=== PATIENT | female | born 1985 | race Caucasian/White ===

== ENCOUNTER 2016-07-15 09:28 | Inpatient (IN) | payer BC ==
--- NOTE | 2016-07-15 09:59 | EDPHY ---
H & P Time Seen by Provider: 07/15/16 09:37 HPI/ROS: Chief complaint. Abdominal pain HPI. 30-year-old female presents emergency department abdominal pain for 1. Described as upper abdomen and painful. She also describes as sharp and constant with radiation to back. Associated nausea vomiting. Denies diarrhea or fever. No chest discomfort does complain of shortness of breath and productive cough. Recent heavy alcohol ROS Constitutional. Weakness Eyes. no problems with vision ENT. no sore throat, no nasal drainage Cardiovascular. no chest pain Respiratory. Shortness of breath with cough Abdominal. Upper abdominal pain with nausea and vomiting . no problems urinating MS. no calf pain/swelling, no neck/back pain, no joint pain Skin. no rash Lymph. no swollen glands Neuro. no headache, no dizziness, no difficulty walking or with speech Past Medical/Surgical History: Past medical history is otitis, encephalopathy, cerebellar degeneration shown. She has also alcoholism, left breast with reconstruction. Celiac disease, previous C difficile Social History: Single, daily smoker, recent alcohol Smoking Status: Current every day smoker Physical Exam: General Appearance: Alert well-developed female moderate distress vital signs show heart rate 143 with blood pressure 133/107 and respiratory rate 24 Eyes: Pupils equal and round no pallor or injection. ENT, mucous membranes are dry Respiratory: There is tachypnea. Lungs are clear to auscultation Cardiovascular: Regular rate and rhythm with tachycardia Gastrointestinal: Abdomen is soft with tenderness in the epigastrium. No masses. Bowel sounds normal Neurological: Awake and alert, sensory and motor exams grossly normal. Skin: Warm and dry, no rashes. Musculoskeletal: Neck is supple nontender. Extremities symmetrical, full range of motion. Psychiatric: Patient is oriented X 3, there is no agitation. Constitutional: Initial Vital Signs Heart Rate 143 H 07/15/16 09:29 Respiratory Rate 24 H 07/15/16 09:29 Blood Pressure 133/107 H 07/15/16 09:29 O2 Sat (%) 94 07/15/16 09:29 O2 Delivery Mode Room Air Allergies/Adverse Reactions: celecoxib [From Celebrex] Allergy (Verified 08/04/15 12:18) tizanidine HCl [From Zanaflex] Allergy (Verified 12/20/15 01:51) Other-Enter Comments Home Medications: Medication Instructions Recorded Gabapentin [Neurontin 300 MG (*)] 1,200 mg PO TID 07/09/15 Ibuprofen [Motrin (*)] 600 mg PO DAILY PRN 07/09/15 Norgestimate-Ethinyl Estradiol 1 tab PO DAILY 07/09/15 [Norg-Ee 0.18-0.215-0.25/0.035] DULoxetine [Cymbalta 30 MG (*)] 30 mg PO BID #60 cap 08/02/15 oxyCODONE/APAP 5/325 [Percocet 1 tab PO DAILY PRN 12/19/15 5/325 (*)] Thiamine HCl [Vitamin B-1] 100 mg PO DAILY #30 tab 12/24/15 Medical Decision Making Procedures: IV normal saline, monitor. Initial target of 2 L. Dilaudid for pain. Zofran for nausea ED Course/Re-evaluation: The patient received 2 L of fluid. She has remained EKG did with Dilaudid and Zofran. Tachycardia it is decreasing but the patient remains tachycardia Patient and I discussed laboratory evaluation, treatment plan, recommendation for admission. She expresses understanding and agreement Differential Diagnosis: The patient clearly has pancreatitis. I think that this is also alcohol withdrawal. I think however the patient probably has alcoholic ketoacidosis. She denies drinking ethanol, isopropyl alcohol, ethylene glycol. Patient is severely acidotic with an elevated anion gap. Differential would include nontraditional alcohol switch the patient denies as well as lactate. Critical Care Time: Critical care time exclusive of procedures is 40 minutes - Data Points Laboratory Results: Laboratory Results 07/15/16 10:05 07/15/16 11:18 07/15/16 07/15/16 07/15/16 11:18 10:59 10:05 WBC 9.23 10^3/uL (3.80-9.50) RBC 4.13 L 10^6/uL (4.18-5.33) Hgb 15.6 g/dL (12.6-16.3) Hct 45.1 % (38.0-47.0) MCV 109.2 H fL (81.5-99.8) MCH 37.8 H pg (27.9-34.1) MCHC 34.6 g/dL (32.4-36.7) RDW 14.3 % (11.5-15.2) Plt Count 133 L 10^3/uL (150-400) MPV 10.1 fL (8.7-11.7) Neut % (Auto) 88.5 H % (39.3-74.2) Lymph % (Auto) 5.2 L % (15.0-45.0) [place] % (Auto) 5.3 % (4.5-13.0) Eos % (Auto) 0.0 L % (0.6-7.6) Baso % (Auto) 0.5 % (0.3-1.7) Nucleat RBC Rel Count 0.2 % (0.0-0.2) Absolute Neuts (auto) 8.16 H 10^3/uL (1.70-6.50) Absolute Lymphs (auto) 0.48 L 10^3/uL (1.00-3.00) Absolute Monos (auto) 0.49 10^3/uL (0.30-0.80) Absolute Eos (auto) 0.00 L 10^3/uL (0.03-0.40) Absolute Basos (auto) 0.05 10^3/uL (0.02-0.10) Absolute Nucleated RBC 0.02 H 10^3/uL (0-0.01) Immature Gran % 0.5 % (0.0-1.1) Immature Gran # 0.05 10^3/uL (0.00-0.10) PT INR APTT VBG Lactic Acid 3.3 H mmol/L (0.7-2.1) Sodium 134 mEq/L REJ (134-144) Potassium 4.3 mEq/L REJ (3.5-5.2) Chloride 103 mEq/L REJ (97-110) Carbon Dioxide 6 L* mEq/l REJ (22-31) Anion Gap 25 mEq/L REJ (8-16) BUN 3 L mg/dL REJ (7-23) Creatinine 0.7 mg/dL REJ (0.6-1.0) Estimated GFR > 60 REJ Glucose 63 L mg/dL REJ (70-100) Calcium 7.2 L mg/dL REJ (8.5-10.4) Phosphorus Pending Magnesium Pending Total Bilirubin 3.0 H mg/dL REJ (0.1-1.4) Conjugated Bilirubin 2.2 H mg/dL REJ (0.0-0.5) Unconjugated Bilirubin 0.8 mg/dL REJ (0.0-1.1) AST 88 H IU/L REJ (14-46) ALT 44 IU/L REJ (9-52) Alkaline Phosphatase 71 IU/L REJ (38-126) Total Protein 6.6 g/dL REJ (6.3-8.2) Albumin 3.9 g/dL REJ (3.5-5.0) Lipase 7505.0 H IU/L REJ (23-300) Beta-Hydroxybutyrate Pending Beta HCG, Qual NEGATIVE 07/15/16 09:50 WBC RBC Hgb Hct MCV MCH MCHC RDW Plt Count MPV Neut % (Auto) Lymph % (Auto) [place] % (Auto) Eos % (Auto) Baso % (Auto) Nucleat RBC Rel Count Absolute Neuts (auto) Absolute Lymphs (auto) Absolute Monos (auto) Absolute Eos (auto) Absolute Basos (auto) Absolute Nucleated RBC Immature Gran % Immature Gran # PT 12.7 SEC (12.0-15.0) INR 0.96 (0.83-1.16) APTT 29.2 SEC (23.0-38.0) VBG Lactic Acid Sodium Potassium Chloride Carbon Dioxide Anion Gap BUN Creatinine Estimated GFR Glucose Calcium Phosphorus Magnesium Total Bilirubin Conjugated Bilirubin Unconjugated Bilirubin AST ALT Alkaline Phosphatase Total Protein Albumin Lipase Beta-Hydroxybutyrate Beta HCG, Qual Medications Given: Discontinued Medications Hydromorphone HCl (Dilaudid) 1 mg IVP EDNOW ONE Stop: 07/15/16 10:11 Last Admin: 07/15/16 10:28 Dose: 1 mg Hydromorphone HCl (Dilaudid) 1 mg IVP EDNOW ONE Stop: 07/15/16 12:05 Last Admin: 07/15/16 12:08 Dose: 1 mg Sodium Chloride (Ns) 1,000 mls @ 0 mls/hr IV ONCE ONE PRN Reason: Wide Open Stop: 07/15/16 10:11 Last Admin: 07/15/16 10:28 Dose: 1,000 mls Sodium Chloride (Ns) 1,000 mls @ 0 mls/hr IV ONCE ONE PRN Reason: Wide Open Stop: 07/15/16 10:11 Last Admin: 07/15/16 10:20 Dose: 1,000 mls Ondansetron HCl (Zofran) 4 mg IVP EDNOW ONE Stop: 07/15/16 10:11 Last Admin: 07/15/16 10:28 Dose: 4 mg Ondansetron HCl (Zofran) 4 mg IVP EDNOW ONE Stop: 07/15/16 12:05 Last Admin: 07/15/16 12:08 Dose: 4 mg Departure - Departure Disposition: [facility] Acute Clinical Impression: pancreatitis, alcoholic ketoacidosis Condition: Fair
[2016-07-15] MEDS ORDERED: NS 1,000 ML IV ONE ×3 (10:10→13:12)
[2016-07-15] MEDS ORDERED: HYDROmorphONE/DILAUDID 1 MG/ML SYR IVP ONE ×2 (10:10→12:04)
[2016-07-15] MEDS ORDERED: ONDANSETRON 4 MG/2 ML VIAL IVP ONE ×2 (10:10→12:04)
[2016-07-15 10:21] LABS: % IMMATURE GRANULYOCYTES 0.5 % (0.0-1.1); ABSOLUTE IMMATURE GRANULOCYTES 0.05 10^3/uL (0.00-0.10); ABSOLUTE NRBC COUNT 0.02 10^3/uL (0-0.01); ADD DIFF? NO; ADD MORPH? NO; ADD SCAN? NO; ATYPICAL LYMPHOCYTE FLAG 0 (0-99); FRAGMENT RBC FLAG 0 (0-99); HEMATOCRIT 45.1 % (38.0-47.0); HEMOGLOBIN 15.6 g/dL (12.6-16.3); LEFT SHIFT FLG 0 (0-99); LIPEMIA HEMOLYSIS FLAG 90 (0-99); MEAN CELL HEMOGLOBIN 37.8 pg (27.9-34.1); MEAN CELL HEMOGLOBIN CONCENTR. 34.6 g/dL (32.4-36.7); MEAN CELL VOLUME 109.2 fL (81.5-99.8); MEAN PLATELET VOLUME 10.1 fL (8.7-11.7); NRBC-AUTO% 0.2 % (0.0-0.2); PLATELET CLUMPS FLAG 20 (0-99); PLATELET COUNT 133 10^3/uL (150-400); RED BLOOD CELL COUNT 4.13 10^6/uL (4.18-5.33); RED CELL DISTRIBUTION WIDTH 14.3 % (11.5-15.2)
[2016-07-15 10:31] LABS: APTT 29.2 SEC (23.0-38.0); INR 0.96 (0.83-1.16); PROTIME(PATIENT) 12.7 SEC (12.0-15.0)
[2016-07-15 11:38] LABS: ALANINE AMINOTRANSFERASE 44 IU/L (9-52); ALBUMIN 3.9 g/dL (3.5-5.0); ALKALINE PHOSPHATASE 71 IU/L (38-126); ANION GAP 25 mEq/L (8-16); ASPARTATE AMINOTRANSFERASE 88 IU/L (14-46); BILIRUBIN-CONJUGATED 2.2 mg/dL (0.0-0.5); BILIRUBIN-UNCONJUGATED 0.8 mg/dL (0.0-1.1); CALCIUM 7.2 mg/dL (8.5-10.4); CHLORIDE 103 mEq/L (97-110); CREATININE 0.7 mg/dL (0.6-1.0); GLOMERULAR FILTRATION RATE > 60; GLUCOSE 63 mg/dL (70-100); POTASSIUM 4.3 mEq/L (3.5-5.2); SODIUM 134 mEq/L (134-144); TOTAL PROTEIN 6.6 g/dL (6.3-8.2)
[2016-07-15 11:54] LABS: CARBON DIOXIDE 6 mEq/l (22-31)
[2016-07-15] MEDS ORDERED: ONDANSETRON 4 MG/2 ML VIAL ONE ×2 (12:02→14:27)
[2016-07-15] MEDS ORDERED: HYDROmorphONE/DILAUDID 1 MG/ML SYR ONE ×2 (12:02→14:28)
[2016-07-15] MEDS ORDERED: THIAMINE HCL 500 MG in NS 100 ML IM ONE (12:10)
[2016-07-15] MEDS ORDERED: D5W 1/2 NS 1,000 ML IV SCH (12:15)
[2016-07-15] MEDS ORDERED: D5W NS 1,000 ML IV SCH ×2 (12:30→13:23)
[2016-07-15 12:34] LABS: MAGNESIUM 1.2 mg/dL (1.6-2.3)
[2016-07-15] MEDS ORDERED: MAGNESIUM SULF 2 GM/WATER 50 ML IV ONE ×2 (12:43→18:00)
[2016-07-15] MEDS ORDERED: ALTEPLASE 2 MG VIAL IVP PRN (13:11)
[2016-07-15] MEDS ORDERED: D50W 25 GM/50 ML SYR IVP ONE (13:12)
[2016-07-15] MEDS ORDERED: ONDANSETRON DISINTEGRATING 4 MG TAB PO PRN (13:13)
[2016-07-15] MEDS ORDERED: ACETAMINOPHEN 325 MG TAB PO PRN (13:13)
[2016-07-15] MEDS ORDERED: NS 1,000 ML IV SCH (13:15)
[2016-07-15] MEDS ORDERED: THIAMINE HCL 500 MG in NS 100 ML IV ONE (13:16)
[2016-07-15] MEDS ORDERED: chlordiazePOXIDE 25 MG CAP PO PRN (13:16)
[2016-07-15 13:35] LABS: BASE EXCESS -25.5 mEq/L (-2.5-2.5); BICARBONATE 3 mEq/L (22-26); MEASURED OXYGEN SATURATION 96 % (92-95); PO2 117 mmHg (65-75)
[2016-07-15 13:41] LABS: PCO2 10 mmHg (34-38)
[2016-07-15 13:42] LABS: O2 CONCENTRATIION ROOM AIR % (0-100); P/F RATIO 0 RATIO; TCO2 4 mEq/L (23-27)
--- NOTE | 2016-07-15 14:20 | GHP ---
[f rep st] HISTORY AND PHYSICAL DATE OF ADMISSION: 07/15/2016 CHIEF COMPLAINT: Abdominal pain. HISTORY OF PRESENT ILLNESS: This is a 30-year-old female with a history of alcoholism and a previous episode of severe pancreatitis last July. She presents with a 1-week history of abdominal pain a nd decreased p.o. intake, and then 2 days of severe abdominal pain radiating to the back that was sha rp, as well as nausea, vomiting. History is a little bit inconsistent at times. She states she only drinks about 2-3 drinks per day, and does admit to probably drinking more during the holidays. She is not having any fevers or chills. No shortness of breath. REVIEW OF SYSTEMS: A 10-point review of systems was obtained and other than as noted above was negat sarina. PAST MEDICAL HISTORY: 1. 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 2. History of peripheral neuropathy, for which she sees Dr. Riley. 3. Recent diagnosis of rheumatoid arthritis, status post cortisone injection in both knees. She sta liza she is getting physical therapy to help with that as well. 4. History of celiac sprue. SOCIAL HISTORY: Alcohol as above. Does smoke a little bit. FAMILY HISTORY: Mother had erythema nodosum. MEDICATIONS: Reviewed. PHYSICAL EXAMINATION: VITAL SIGNS: Afebrile. Blood pressure is 136/101, heart rate 130s to 140s, r espiratory rate 23, oxygen saturation is 100% on room air. GENERAL: The patient is ill appearing, t hin, with a little bit of tachypnea. HEENT: Nonicteric sclerae. Very dry mucous membranes. NECK: Supple. No thyromegaly. LUNGS: Good effort. Clear to auscultation bilaterally. CARDIOVASCULAR: Tachycardiac, no murmurs, rubs, or gallops. ABDOMEN: Decreased bowel sounds, soft, definitely on t he firmer side, diffuse tenderness. No rebound or guarding. EXTREMITIES: No clubbing, cyanosis, or edema. Mild tremor. NEUROLOGIC: Alert and oriented x3. Moving all 4 extremities equally. PSYCH: Normal mood and affect. LABS: White count 9, hemoglobin 15, MCV is 109, platelets are 133. Sodium 134, potassium 4.3, CO2 o f 6, BUN of 3, and creatinine 0.7. Glucose low at 63, total bilirubin 3.0, conjugated 2.2, AST 88. Magnesium is 1.2. Lactic acid elevated at 3.3. ASSESSMENT: A 30-year-old female presenting with severe acute pancreatitis as well as most likely al coholic ketoacidosis. PLAN: 1. Acute pancreatitis. This is presumed to be alcoholic, although would need to rule out gallstone pancreatitis. Will set up an ultrasound currently. Eventually, we do need to get CT scan to look at the pancreas as this is quite severe, however, I think she is a little bit unstable at this point fo r that. We are aggressively hydrating her currently. I am going to get a PICC line placement stat t o facilitate this. Most likely, this will be a prolonged hospital course. 2. Severe anion gap metabolic acidosis. This is most likely due to alcoholic ketoacidosis. Her lac tic acid is really not that elevated to cause such degree of acidosis. Her blood sugar is low at 62. Since her blood sugar is a little bit low, I am going to give her an amp of D50 and then will run s ome D5 normal saline as IV fluids for some time to both hydrate and give a little bit of sugar. We a nticipate a lot of electrolyte abnormalities, and will replete them as we begin to hydrate her. I wi ll also get a serum osmolar to calculate osmolar gap. 3. Alcoholism. Will place on CIWA protocol. 4. History of peripheral neuropathy. This appears to be stable. 5. Recent diagnosis of rheumatoid arthritis. 6. Celiac sprue. Once she is on diet, will make this gluten free. 1 hour of critical care time has been spent with this patient. /[id number]/MODL
[2016-07-15 15:06] LABS: COLOR YELLOW; LEUKOCYTE ESTERASE,URINE NEGATIVE (NEGATIVE); NITRITE,URINE NEGATIVE (NEGATIVE)
[2016-07-15 15:18] LABS: BACTERIA 1+ /hpf (NONE SEEN); MUCUS TRACE /lpf (NONE-1+)
[2016-07-15] MEDS: HYDROmorphONE/DILAUDID 1 MG/ML SYR IVP PRN ×2 (15:49→23:23)
[2016-07-15 16:00] LABS: ANION GAP 18 mEq/L (8-16); CALCIUM 6.4 mg/dL (8.5-10.4); CHLORIDE 106 mEq/L (97-110); CREATININE 0.6 mg/dL (0.6-1.0); GLOMERULAR FILTRATION RATE > 60; GLUCOSE 312 mg/dL (70-100); POTASSIUM 3.9 mEq/L (3.5-5.2); SODIUM 131 mEq/L (134-144)
[2016-07-15 16:04] LABS: CARBON DIOXIDE 7 mEq/l (22-31)
[2016-07-15] MEDS ORDERED: NA BICARBONATE 50 MEQ/50 ML VIAL ONE (16:15)
[2016-07-15] MEDS ORDERED: NICOTINE 7 MG/24 HR PATCH TD ONE (16:21)
[2016-07-15] MEDS: ONDANSETRON 4 MG/2 ML VIAL IVP PRN ×2 (16:25→23:16)
[2016-07-15] MEDS ORDERED: NA BICARBONATE 50 MEQ/50 ML VIAL IV ONE (17:30)
[2016-07-15] MEDS ORDERED: SODIUM BICARBONATE 150 MEQ in D5W 1,000 ML IV SCH (17:30)
[2016-07-15] MEDS: NICOTINE 7 MG/24 HR PATCH TD SCH (18:05)
[2016-07-15 18:46] LABS: ANION GAP 15 mEq/L (8-16); CALCIUM 6.1 mg/dL (8.5-10.4); CARBON DIOXIDE 11 mEq/l (22-31); CHLORIDE 107 mEq/L (97-110); CREATININE 0.5 mg/dL (0.6-1.0); GLOMERULAR FILTRATION RATE > 60; GLUCOSE 323 mg/dL (70-100); POTASSIUM 2.9 mEq/L (3.5-5.2); SODIUM 133 mEq/L (134-144)
--- NOTE | 2016-07-15 19:22 | IR ---
Imaging-Guided Peripherally Inserted Central Catheter History: Sepsis and pancreatitis. Prophylactic Antibiotic: Cefazolin was not ordered and administered for antimicrobial prophylaxis be cause it was not medically necessary for this procedure. VTE Prophylaxis: There is not an order for VTE prophylaxis to be given within 24 hours after procedu re end time because it was not medically necessary for this procedure. Crosscutting Measure: Patient's current list of medications including all known prescriptions, over- the-counters, herbals, and vitamin/mineral/dietary supplements are reviewed. Medications' name, dosa ge, frequency, and route of administration are confirmed. Technique: Following informed consent, the right arm was prepped and draped in sterile fashion. 1% Xy locaine was used for local anesthetic. All elements of maximal sterile barrier technique including cap, mask, sterile gown, sterile gloves, large sterile sheet, hand hygiene, and 2% chlorhexidine for cutaneous antisepsis, followed. Ultrasound evaluation of potential access site was performed. After successfully identifying a patent vessel, ultrasound guidance was used to puncture the vein. A permanent recording was created for the patient's record. Ultrasound transducer was placed in sterile sleeve and used for real-time imaging guidance over steri le gel to enter the basilic vein. 0.018 measuring wire was passed centrally under fluoroscopic contro l. A skin rosalie with scalpel blade was followed by removing the access needle. A 5 Spanish peel-away sh eath was followed by a 5 Spanish double-lumen central catheter, trimmed to 34 cm length. The tip of t he catheter was positioned centrally and the guidewire removed. A single fluoroscopic spot image was obtained in inspiration. The hub of the catheter was fixed to the skin using a sterile StatLock adhes sarina device, and a sterile dressing was applied. The catheter was irrigated. Findings: The tip of the central catheter terminates at the junction of the superior vena cava and th e right atrium. Fluoroscopy: 0.3 minutes, one images Impression: 5 Spanish double lumen peripherally inserted central catheter is ready to use.
[2016-07-15 19:25] LABS: ETHANOL SERUM < 10 mg/dL (0-10)
[2016-07-15] MEDS: LORazepam 2 MG/ML INJ IVP PRN (20:06)
[2016-07-15] MEDS: FAMOTIDINE 20 MG/NACL 50 ML IV SCH (20:07)
[2016-07-16] MEDS: LORazepam 2 MG/ML INJ IVP PRN ×4 (00:14→22:45)
[2016-07-16 00:28] LABS: ANION GAP 10 mEq/L (8-16); CALCIUM 6.3 mg/dL (8.5-10.4); CARBON DIOXIDE 23 mEq/l (22-31); CHLORIDE 100 mEq/L (97-110); CREATININE 0.5 mg/dL (0.6-1.0); GLOMERULAR FILTRATION RATE > 60; GLUCOSE 231 mg/dL (70-100); SODIUM 133 mEq/L (134-144)
[2016-07-16 00:40] LABS: POTASSIUM 2.5 mEq/L (3.5-5.2)
[2016-07-16] MEDS ORDERED: POTASSIUM Cl (KCl) 20 MEQ/50 ML BAG IV ONE (00:45)
[2016-07-16] MEDS: POTASSIUM Cl (KCl) 50 ML IV SCH ×5 (00:45→06:27)
[2016-07-16] MEDS: D5W NS W/ 20 KCl/L 1,000 ML IV SCH ×2 (00:50→05:00)
[2016-07-16] MEDS ORDERED: PROTOCOL MAGNESIUM 1 DOSE IV PRN ×2 (01:21→15:26)
[2016-07-16] MEDS ORDERED: PROTOCOL CALCIUM 1 DOSE IV PRN ×2 (01:21→15:26)
[2016-07-16] MEDS ORDERED: PROTOCOL POTASSIUM 1 DOSE MISC PRN ×2 (01:21→15:26)
[2016-07-16] MEDS: HYDROmorphONE/DILAUDID 1 MG/ML SYR IVP PRN ×6 (03:54→22:44)
[2016-07-16 04:14] LABS: IONIZED CALCIUM 1.02 MMOL/L (1.12-1.30)
[2016-07-16 04:27] LABS: INR 1.04 (0.83-1.16); PROTIME(PATIENT) 13.5 SEC (12.0-15.0)
[2016-07-16 04:28] LABS: ALANINE AMINOTRANSFERASE 34 IU/L (9-52); ALBUMIN 2.3 g/dL (3.5-5.0); ALKALINE PHOSPHATASE 40 IU/L (38-126); ANION GAP 6 mEq/L (8-16); ASPARTATE AMINOTRANSFERASE 39 IU/L (14-46); BILIRUBIN,TOTAL 2.4 mg/dL (0.1-1.4); CALCIUM 6.5 mg/dL (8.5-10.4); CARBON DIOXIDE 25 mEq/l (22-31); CHLORIDE 103 mEq/L (97-110); CREATININE 0.5 mg/dL (0.6-1.0); GLOMERULAR FILTRATION RATE > 60; GLUCOSE 220 mg/dL (70-100); POTASSIUM 3.3 mEq/L (3.5-5.2); SODIUM 134 mEq/L (134-144); TOTAL PROTEIN 4.1 g/dL (6.3-8.2)
[2016-07-16 04:29] LABS: ADD DIFF? NO; ADD MORPH? NO; ADD SCAN? NO; ATYPICAL LYMPHOCYTE FLAG 0 (0-99); FRAGMENT RBC FLAG 0 (0-99); HEMATOCRIT 26.8 % (38.0-47.0); HEMOGLOBIN 9.8 g/dL (12.6-16.3); LEFT SHIFT FLG 40 (0-99); LIPEMIA HEMOLYSIS FLAG 90 (0-99); MEAN CELL HEMOGLOBIN 37.3 pg (27.9-34.1); MEAN CELL HEMOGLOBIN CONCENTR. 36.6 g/dL (32.4-36.7); MEAN CELL VOLUME 101.9 fL (81.5-99.8); MEAN PLATELET VOLUME 10.3 fL (8.7-11.7); PLATELET CLUMPS FLAG 0 (0-99); PLATELET COUNT 59 10^3/uL (150-400); RED BLOOD CELL COUNT 2.63 10^6/uL (4.18-5.33); RED CELL DISTRIBUTION WIDTH 13.8 % (11.5-15.2)
[2016-07-16] MEDS ORDERED: CALCIUM GLUCONATE 50 ML IV ONE (04:30)
[2016-07-16] MEDS ORDERED: PROTOCOL K PHOSPHATE 1 DOSE IV PRN ×2 (04:34→15:26)
[2016-07-16 04:36] LABS: BILIRUBIN-CONJUGATED 1.4 mg/dL (0.0-0.5)
[2016-07-16] MEDS: THIAMINE HCL 500 MG in NS 100 ML IV SCH (08:28)
[2016-07-16] MEDS: NICOTINE 7 MG/24 HR PATCH TD SCH (08:34)
[2016-07-16] MEDS: FAMOTIDINE 20 MG/NACL 50 ML IV SCH ×2 (08:36→22:33)
[2016-07-16] MEDS: ENOXAPARIN 30 MG/0.3 ML SYR SC SCH (08:36)
[2016-07-16] MEDS ORDERED: D50W 25 GM/50 ML SYR IVP PRN (09:45)
--- NOTE | 2016-07-16 10:03 | HOSPPROG ---
Hospitalist Progress Note Assessment/Plan: Alcoholic pancreatitis - prior course in 07/2014 complicated by abscess requiring laparotomy. Will check CT abd/pelvis given hx, severity of presentation and ongoing pain. Cont NPO. She has been aggressively volume resuscitated. Will request strict I&O's. Alcohol dependence - CIWA's overnight ~3, continue symptom triggered bzd dosing. Hyperglycemia - in setting of acute illness and s/p steroid injection in knee. Presented with hypoglycemia, bg 60 and received D50 and D5 in fluids. BG's now 200's. Will d/c D5 and start dose adjusted insulin, q6h bg's while NPO. Metabolic acidosis - Likely alcoholic ketoacidosis, resolved with IVF's. Cont to monitor. Pancytopenia - Likely due to alcohol, follow. H/O C diff - no diarrhea here Celiac disease - gluten free diet when ready to take PO DVT PPLX - lovenox Full code Dispo - transfer to med surg Subjective: Pt still having quite a bit of pain, but feels better than yesterday. No Objective: Vital Signs Temp Pulse Resp BP Pulse Ox 36.8 C 118 H 16 105/74 93 07/16/16 08:00 07/16/16 08:00 07/16/16 08:00 07/16/16 08:00 07/16/16 08:00 Laboratory Results 07/16/16 03:55 07/16/16 03:55 07/15/16 07/16/16 07/17/16 05:59 05:59 05:59 Intake Total 9500 Balance 9500 PT 13.5 SEC (12.0-15.0) 07/16/16 03:55 INR 1.04 (0.83-1.16) 07/16/16 03:55 - Physical Exam Constitutional: no apparent distress Eyes: PERRL Ears, Nose, Mouth, Throat: moist mucous membranes Cardiovascular: regular rate and rhythym Respiratory: no respiratory distress Gastrointestinal: normoactive bowel sounds, tenderness Skin: warm Neurologic: AAOx3 Psychiatric: interacting appropriately ICD10 Worksheet Patient Problems: Problems Problem Status Diagnosed Neuropathy Acute Abdominal pain Acute C. difficile diarrhea Acute 07/30/15 Colitis Acute Dehydration Acute Pancreatitis Acute Phlegmon of pancreas Acute Ruptured appendicitis Acute SIRS (systemic inflammatory response syndrome) Acute Tachycardia Acute
[2016-07-16] MEDS ORDERED: IOPAMIDOL (ISOVUE-300) 50 ML VIAL IV ONE (10:52)
[2016-07-16] MEDS: NS W/ 20 KCl/L 1,000 ML IV SCH ×2 (11:00→19:31)
[2016-07-16] MEDS ORDERED: K PHOS 20 MMOL in D5W 250 ML IV ONE (12:00)
[2016-07-16] MEDS ORDERED: INSULIN LISPRO 100 UNIT/ML SC SCH (12:00)
[2016-07-16 12:57] LABS: POTASSIUM 3.3 mEq/L (3.5-5.2)
[2016-07-16] MEDS: INSULIN LISPRO 100 UNIT/ML SC SCH ×3 (13:02→22:47)
--- NOTE | 2016-07-16 13:10 | CT ---
CT Scan of the Abdomen and Pelvis (With Contrast) Indication: Pancreatitis. Abdominal pain. Evaluate for abscess. Technique: Dilute contrast was given orally prior to scanning. 90 mL of Isovue-300 were given intra venously by machine power injection. Multidetector helical CT imaging was performed from the diaphra gm to the symphysis pubis. Dose reduction techniques were utilized. Comparison: CT abdomen and pelvis, July 25, 2015. Findings: Extensive edema and stranding surround the head, neck, body and tail of the pancreas. The p ancreas homogeneously enhances. No pancreatic necrosis. Fluid and stranding track down bilateral para colic gutters and a small to moderate amount of free fluid resides in the low pelvis. No organized ri m-enhancing fluid collection. No portal vein thrombosis or pseudoaneurysm. Liver has generalized decreased attenuation characteristic of hepatic steatosis. Numerous tiny (1-2 m m) stones reside dependently in the gallbladder lumen. No biliary dilation or evidence of common bile duct stone. The spleen, adrenal glands, and kidneys are normal. The urinary bladder, uterus, and ovaries are norm al. Mild adynamic ileus evidenced by mild distention of fluid-filled ascending and transverse colon. No e vidence of mechanical obstruction. Moderate layering bilateral pleural effusions result in bibasilar compressive atelectasis, worse righ t than left. Heart size is normal. No pericardial effusion. The abdominal aorta is normal caliber. No bone lesion. Impression: 1. Pancreatitis with regional inflammatory stranding throughout the upper abdomen and small to modera te volume of free fluid in the pelvis. 2. No pancreatic necrosis or organized abscess or pseudocyst. 3. Cholelithiasis. No biliary obstruction or evidence of common bile duct stone. 4. Hepatic steatosis. 5. Bilateral pleural effusions and compressive atelectasis.
[2016-07-16 20:09] LABS: POTASSIUM 3.2 mEq/L (3.5-5.2)
[2016-07-16] MEDS ORDERED: POTASSIUM CL 10 MEQ TAB PO ONE (20:30)
[2016-07-17] MEDS: NS W/ 20 KCl/L 1,000 ML IV SCH (02:41)
[2016-07-17] MEDS: HYDROmorphONE/DILAUDID 1 MG/ML SYR IVP PRN ×5 (02:46→23:23)
[2016-07-17] MEDS: INSULIN LISPRO 100 UNIT/ML SC SCH ×4 (04:01→21:09)
[2016-07-17 05:47] LABS: IONIZED CALCIUM 1.07 MMOL/L (1.12-1.30)
[2016-07-17 05:50] LABS: % IMMATURE GRANULYOCYTES 0.6 % (0.0-1.1); ABSOLUTE IMMATURE GRANULOCYTES 0.02 10^3/uL (0.00-0.10); ADD DIFF? NO; ADD MORPH? NO; ADD SCAN? NO; ATYPICAL LYMPHOCYTE FLAG 0 (0-99); FRAGMENT RBC FLAG 0 (0-99); HEMATOCRIT 26.2 % (38.0-47.0); HEMOGLOBIN 9.5 g/dL (12.6-16.3); LEFT SHIFT FLG 50 (0-99); LIPEMIA HEMOLYSIS FLAG 90 (0-99); MEAN CELL HEMOGLOBIN 37.7 pg (27.9-34.1); MEAN CELL HEMOGLOBIN CONCENTR. 36.3 g/dL (32.4-36.7); MEAN PLATELET VOLUME 10.8 fL (8.7-11.7); PLATELET CLUMPS FLAG 0 (0-99); PLATELET COUNT 54 10^3/uL (150-400); RED BLOOD CELL COUNT 2.52 10^6/uL (4.18-5.33); RED CELL DISTRIBUTION WIDTH 14.9 % (11.5-15.2)
[2016-07-17 06:06] LABS: ALANINE AMINOTRANSFERASE 31 IU/L (9-52); ALBUMIN 2.6 g/dL (3.5-5.0); ALKALINE PHOSPHATASE 61 IU/L (38-126); ANION GAP 6 mEq/L (8-16); ASPARTATE AMINOTRANSFERASE 41 IU/L (14-46); BILIRUBIN,TOTAL 1.5 mg/dL (0.1-1.4); CALCIUM 7.6 mg/dL (8.5-10.4); CARBON DIOXIDE 27 mEq/l (22-31); CHLORIDE 102 mEq/L (97-110); CREATININE 0.4 mg/dL (0.6-1.0); GLOMERULAR FILTRATION RATE > 60; GLUCOSE 73 mg/dL (70-100); MAGNESIUM 1.4 mg/dL (1.6-2.3); POTASSIUM 3.7 mEq/L (3.5-5.2); SODIUM 135 mEq/L (134-144); TOTAL PROTEIN 4.5 g/dL (6.3-8.2)
[2016-07-17] MEDS ORDERED: CALCIUM GLUCONATE 50 ML IV ONE (06:54)
[2016-07-17] MEDS ORDERED: MAGNESIUM SULF 2 GM/WATER 50 ML IV ONE (06:55)
[2016-07-17] MEDS: FAMOTIDINE 20 MG/NACL 50 ML IV SCH ×2 (08:23→20:09)
[2016-07-17] MEDS: THIAMINE HCL 500 MG in NS 100 ML IV SCH (08:26)
[2016-07-17] MEDS: PROMETHAZINE HCL 25 MG/ML VIAL IVP PRN ×2 (08:46→20:10)
[2016-07-17] MEDS: POTASSIUM Cl (KCl) 100 ML IV SCH ×2 (09:34→11:41)
[2016-07-17] MEDS: ENOXAPARIN 30 MG/0.3 ML SYR SC SCH (09:48)
[2016-07-17] MEDS: NICOTINE 7 MG/24 HR PATCH TD SCH (10:02)
[2016-07-17] MEDS: LORazepam 2 MG/ML INJ IVP PRN ×2 (11:18→17:48)
[2016-07-17] MEDS ORDERED: K PHOS 20 MMOL in D5W 250 ML IV ONE (12:00)
--- NOTE | 2016-07-17 13:28 | HOSPPROG ---
Hospitalist Progress Note Assessment/Plan: Alcoholic pancreatitis - prior course in 07/2014 complicated by abscess requiring laparotomy. No e/o abscess on CT yesterday. She has been aggressively volume resuscitated. Still painful, but really wants some sips of clears. Cont NPO, allow a few sips for comfort. Alcohol dependence - Max CIWA 4, continue symptom triggered bzd dosing. Hyperglycemia - in setting of acute illness and s/p steroid injection in knee. Presented with hypoglycemia, bg 60 and received D50 and D5 in fluids, which was held for bg >200. Will resume D5 due to lowish bg's again. Dose adjusted insulin if needed. Metabolic acidosis - Likely alcoholic ketoacidosis, resolved with IVF's. Cont to monitor. Pancytopenia - Improving. Likely due to alcohol, follow. H/O C diff - no diarrhea here Celiac disease - gluten free diet when ready to take PO DVT PPLX - lovenox Full code Dispo - transfer to med surg Subjective: Pt feels better. Still c/o pain, but really wants to eat. No fevers. No N/V. Objective: Vital Signs Temp Pulse Resp BP Pulse Ox 37.1 C 121 H 18 142/103 H 95 07/17/16 08:16 07/17/16 12:47 07/17/16 10:56 07/17/16 10:56 07/17/16 12:47 Laboratory Results 07/17/16 05:30 07/17/16 05:30 07/16/16 07/17/16 07/18/16 05:59 05:59 05:59 Intake Total 9500 350 Balance 9500 350 PT 13.5 SEC (12.0-15.0) 07/16/16 03:55 INR 1.04 (0.83-1.16) 07/16/16 03:55 - Physical Exam Constitutional: no apparent distress Eyes: PERRL Ears, Nose, Mouth, Throat: moist mucous membranes Cardiovascular: regular rate and rhythym Respiratory: no respiratory distress, clear to auscultation Gastrointestinal: normoactive bowel sounds, tenderness Skin: warm Neurologic: AAOx3 Psychiatric: interacting appropriately ICD10 Worksheet Patient Problems: Problems Problem Status Diagnosed Neuropathy Acute Abdominal pain Acute C. difficile diarrhea Acute 07/30/15 Colitis Acute Dehydration Acute Pancreatitis Acute Phlegmon of pancreas Acute Ruptured appendicitis Acute SIRS (systemic inflammatory response syndrome) Acute Tachycardia Acute
[2016-07-17] MEDS: D5W NS W/ 20 KCl/L 1,000 ML IV SCH ×2 (14:09→21:50)
[2016-07-17 18:55] LABS: POTASSIUM 4.3 mEq/L (3.5-5.2)
[2016-07-17] MEDS: ONDANSETRON 4 MG/2 ML VIAL IVP PRN (23:24)
[2016-07-18] MEDS: INSULIN LISPRO 100 UNIT/ML SC SCH ×4 (03:34→21:00)
[2016-07-18 05:06] LABS: IONIZED CALCIUM 1.07 MMOL/L (1.12-1.30)
[2016-07-18 05:12] LABS: % IMMATURE GRANULYOCYTES 0.2 % (0.0-1.1); ABSOLUTE IMMATURE GRANULOCYTES 0.01 10^3/uL (0.00-0.10); ADD DIFF? NO; ADD MORPH? NO; ADD SCAN? NO; ATYPICAL LYMPHOCYTE FLAG 0 (0-99); FRAGMENT RBC FLAG 0 (0-99); HEMATOCRIT 26.4 % (38.0-47.0); HEMOGLOBIN 9.4 g/dL (12.6-16.3); LEFT SHIFT FLG 20 (0-99); LIPEMIA HEMOLYSIS FLAG 90 (0-99); MEAN CELL HEMOGLOBIN 37.5 pg (27.9-34.1); MEAN CELL HEMOGLOBIN CONCENTR. 35.6 g/dL (32.4-36.7); MEAN CELL VOLUME 105.2 fL (81.5-99.8); PLATELET CLUMPS FLAG 0 (0-99); PLATELET COUNT 77 10^3/uL (150-400); RED BLOOD CELL COUNT 2.51 10^6/uL (4.18-5.33); RED CELL DISTRIBUTION WIDTH 14.9 % (11.5-15.2)
[2016-07-18] MEDS: HYDROmorphONE/DILAUDID 1 MG/ML SYR IVP PRN ×4 (05:19→19:18)
[2016-07-18] MEDS: PROMETHAZINE HCL 25 MG/ML VIAL IVP PRN ×2 (05:19→19:18)
[2016-07-18 05:31] LABS: ALANINE AMINOTRANSFERASE 33 IU/L (9-52); ALBUMIN 2.6 g/dL (3.5-5.0); ALKALINE PHOSPHATASE 70 IU/L (38-126); ANION GAP 5 mEq/L (8-16); ASPARTATE AMINOTRANSFERASE 35 IU/L (14-46); BILIRUBIN,TOTAL 1.5 mg/dL (0.1-1.4); CALCIUM 7.8 mg/dL (8.5-10.4); CARBON DIOXIDE 27 mEq/l (22-31); CHLORIDE 104 mEq/L (97-110); CREATININE 0.4 mg/dL (0.6-1.0); GLOMERULAR FILTRATION RATE > 60; GLUCOSE 119 mg/dL (70-100); MAGNESIUM 1.4 mg/dL (1.6-2.3); POTASSIUM 3.1 mEq/L (3.5-5.2); SODIUM 136 mEq/L (134-144); TOTAL PROTEIN 4.7 g/dL (6.3-8.2)
[2016-07-18] MEDS ORDERED: MAGNESIUM SULF 2 GM/WATER 50 ML IV ONE (06:10)
[2016-07-18] MEDS ORDERED: CALCIUM GLUCONATE 50 ML IV ONE (06:13)
[2016-07-18] MEDS: D5W NS W/ 20 KCl/L 1,000 ML IV SCH ×2 (06:34→15:38)
[2016-07-18] MEDS: POTASSIUM Cl (KCl) 50 ML IV SCH ×2 (08:34→10:37)
--- NOTE | 2016-07-18 08:41 | HOSPPROG ---
Hospitalist Progress Note Assessment/Plan: Patient is a 30-year-old female with history of alcoholism and history of laya pancreatitis. She presented with 1 week history of abdominal pain and decreased p.o. intake. She drinks 2-3 drinks a day and probably more during the holidays. Today is my 1st encounter with the patient. Chart reviewed. #. Alcoholic pancreatitis - * prior course in 07/2014 complicated by abscess requiring laparotomy. * No e/o abscess on CT. She has been aggressively volume resuscitated. * patient says pain is much improved today/ will do a trial of clear liquids #. Alcohol dependence * Piper does not think she has a problem with this * has had 2 bouts of pancreatitis * CM to get involved/ concerned she will drink again # Mild Hyperglycemia - in setting of acute illness #. Metabolic acidosis - Likely alcoholic ketoacidosis * improving #. Electrolyte abnormalities * on protocol #. Pancytopenia * due to alcohol use #. H/O C diff - no diarrhea here #. Celiac disease - gluten free diet when ready to take PO #. DVT PPLX - lovenox Dispo -pending/ CM involved with her care/ she lives with her dad/ unsure of her support system. Subjective: Piper is hungry, says abdominal pain is better. Objective: Vital Signs Temp Pulse Resp BP Pulse Ox 36.2 C 101 H 16 128/93 H 93 07/18/16 08:00 07/18/16 08:00 07/18/16 08:00 07/18/16 08:00 07/18/16 08:00 Laboratory Results 07/18/16 04:35 07/18/16 04:35 07/17/16 07/18/16 07/19/16 05:59 05:59 05:59 Intake Total 350 2987 167 Output Total 1700 Balance 350 1287 167 PT 13.5 SEC (12.0-15.0) 07/16/16 03:55 INR 1.04 (0.83-1.16) 07/16/16 03:55 - Physical Exam Constitutional: chronically ill appearing Eyes: PERRL, icteric sclera (mild) Ears, Nose, Mouth, Throat: hearing normal Cardiovascular: regular rate and rhythym, No tachycardia Respiratory: no respiratory distress Gastrointestinal: normoactive bowel sounds, soft, non-tender abdomen Skin: warm Musculoskeletal: generalized weakness Neurologic: AAOx3 Psychiatric: interacting appropriately, poor insight ICD10 Worksheet Patient Problems: Problems Problem Status Diagnosed Neuropathy Acute Abdominal pain Acute C. difficile diarrhea Acute 07/30/15 Colitis Acute Dehydration Acute Pancreatitis Acute Phlegmon of pancreas Acute Ruptured appendicitis Acute SIRS (systemic inflammatory response syndrome) Acute Tachycardia Acute
[2016-07-18] MEDS: LORazepam 2 MG/ML INJ IVP PRN (10:14)
[2016-07-18] MEDS: FAMOTIDINE 20 MG/NACL 50 ML IV SCH ×2 (10:14→22:14)
[2016-07-18] MEDS: NICOTINE 7 MG/24 HR PATCH TD SCH (10:14)
[2016-07-18] MEDS: THIAMINE HCL 100 MG TAB PO SCH (10:14)
[2016-07-18] MEDS: diphenhydrAMINE 25 MG CAP PO PRN (22:14)
[2016-07-19] MEDS: INSULIN LISPRO 100 UNIT/ML SC SCH ×4 (03:00→23:44)
[2016-07-19] MEDS: PROMETHAZINE HCL 25 MG/ML VIAL IVP PRN ×3 (03:19→21:50)
[2016-07-19] MEDS: HYDROmorphONE/DILAUDID 1 MG/ML SYR IVP PRN ×4 (03:19→21:50)
[2016-07-19] MEDS: D5W NS W/ 20 KCl/L 1,000 ML IV SCH ×2 (03:20→12:59)
[2016-07-19 03:59] LABS: % IMMATURE GRANULYOCYTES 0.2 % (0.0-1.1); ABSOLUTE IMMATURE GRANULOCYTES 0.01 10^3/uL (0.00-0.10); ADD DIFF? NO; ADD MORPH? NO; ADD SCAN? NO; ATYPICAL LYMPHOCYTE FLAG 0 (0-99); FRAGMENT RBC FLAG 0 (0-99); HEMATOCRIT 27.9 % (38.0-47.0); LEFT SHIFT FLG 0 (0-99); LIPEMIA HEMOLYSIS FLAG 90 (0-99); MEAN CELL HEMOGLOBIN 38.3 pg (27.9-34.1); MEAN CELL HEMOGLOBIN CONCENTR. 35.8 g/dL (32.4-36.7); MEAN CELL VOLUME 106.9 fL (81.5-99.8); MEAN PLATELET VOLUME 9.9 fL (8.7-11.7); PLATELET CLUMPS FLAG 20 (0-99); PLATELET COUNT 108 10^3/uL (150-400); RED BLOOD CELL COUNT 2.61 10^6/uL (4.18-5.33); RED CELL DISTRIBUTION WIDTH 14.7 % (11.5-15.2)
[2016-07-19 04:20] LABS: ALANINE AMINOTRANSFERASE 31 IU/L (9-52); ALBUMIN 2.8 g/dL (3.5-5.0); ALKALINE PHOSPHATASE 104 IU/L (38-126); ANION GAP 6 mEq/L (8-16); ASPARTATE AMINOTRANSFERASE 41 IU/L (14-46); BILIRUBIN,TOTAL 1.6 mg/dL (0.1-1.4); CALCIUM 8.5 mg/dL (8.5-10.4); CARBON DIOXIDE 24 mEq/l (22-31); CHLORIDE 104 mEq/L (97-110); CREATININE 0.4 mg/dL (0.6-1.0); GLOMERULAR FILTRATION RATE > 60; GLUCOSE 98 mg/dL (70-100); MAGNESIUM 1.3 mg/dL (1.6-2.3); POTASSIUM 3.8 mEq/L (3.5-5.2); SODIUM 134 mEq/L (134-144); TOTAL PROTEIN 5.4 g/dL (6.3-8.2)
[2016-07-19] MEDS ORDERED: MAGNESIUM SULF 2 GM/WATER 50 ML IV ONE (05:31)
[2016-07-19] MEDS ORDERED: POTASSIUM CL 10 MEQ TAB PO ONE (05:35)
[2016-07-19] MEDS: diphenhydrAMINE 25 MG CAP PO PRN ×2 (06:18→21:49)
[2016-07-19] MEDS: FAMOTIDINE 20 MG/NACL 50 ML IV SCH ×2 (09:57→21:50)
[2016-07-19] MEDS: THIAMINE HCL 100 MG TAB PO SCH (09:59)
[2016-07-19] MEDS: NICOTINE 7 MG/24 HR PATCH TD SCH (09:59)
[2016-07-19] MEDS: LORazepam 2 MG/ML INJ IVP PRN ×3 (11:10→23:54)
[2016-07-19] MEDS ORDERED: PROMETHAZINE HCL 25 MG/ML VIAL ONE (15:25)
--- NOTE | 2016-07-19 16:21 | HOSPPROG ---
Hospitalist Progress Note Assessment/Plan: Patient is a 30-year-old female with history of alcoholism and history of laya pancreatitis. She presented with 1 week history of abdominal pain and decreased p.o. intake. She drinks 2-3 drinks a day and probably more during the holidays. #. Alcoholic pancreatitis - * prior course in 07/2014 complicated by abscess requiring laparotomy. * No e/o abscess on CT. She has been aggressively volume resuscitated. * hasn't required pain medications through most of the day/pain is a bit worse this afternoon/will check an abd us in a.m. (patient wants to wait till morning) will change her fluids back to normal saline #. Alcohol dependence * Piper does not think she has a problem with this/shared with her my concern that it is a problem * has had 2 bouts of pancreatitis * CM to get involved/ concerned she will drink again # Mild Hyperglycemia - in setting of acute illness * dc D5 in fluids #. Metabolic acidosis - Likely alcoholic ketoacidosis * improving #. Electrolyte abnormalities * on protocol #. Pancytopenia * due to alcohol use #. H/O C diff - no diarrhea here #. Celiac disease - gluten free diet when ready to take PO #. DVT PPLX - lovenox Dispo -pending/ CM involved with her care/ she lives with her dad/ unsure of her support system. She isn't close to her sister. #. Plan- ultrasound in a.m./ would like to avoid repeat CT scan at this time/ will recheck labs in addition. Subjective: Piper is c/o mild abdominal pain. Objective: Vital Signs Temp Pulse Resp BP Pulse Ox 36.4 C 110 H 14 129/97 H 94 07/19/16 11:30 07/19/16 11:30 07/19/16 11:30 07/19/16 11:30 07/19/16 11:30 Laboratory Results 07/19/16 03:00 07/19/16 03:00 07/18/16 07/19/16 07/20/16 05:59 05:59 05:59 Intake Total 2987 2114 382 Output Total 1700 2000 300 Balance 1287 114 82 PT 13.5 SEC (12.0-15.0) 07/16/16 03:55 INR 1.04 (0.83-1.16) 07/16/16 03:55 - Physical Exam Constitutional: uncomfortable Eyes: PERRL, icteric sclera Ears, Nose, Mouth, Throat: hearing normal Cardiovascular: regular rate and rhythym Respiratory: no respiratory distress Gastrointestinal: normoactive bowel sounds, tenderness (ruq) Skin: warm Musculoskeletal: full muscle strength Neurologic: AAOx3 Psychiatric: not anxious, flat affect ICD10 Worksheet Patient Problems: Problems Problem Status Diagnosed Neuropathy Acute Abdominal pain Acute C. difficile diarrhea Acute 07/30/15 Colitis Acute Dehydration Acute Pancreatitis Acute Phlegmon of pancreas Acute Ruptured appendicitis Acute SIRS (systemic inflammatory response syndrome) Acute Tachycardia Acute
[2016-07-19] MEDS: NS 1,000 ML IV SCH (17:29)
[2016-07-19 18:31] LABS: POTASSIUM 4.4 mEq/L (3.5-5.2)
[2016-07-20] MEDS: NS 1,000 ML IV SCH ×2 (00:08→07:30)
[2016-07-20] MEDS: HYDROmorphONE/DILAUDID 1 MG/ML SYR IVP PRN ×5 (02:03→21:35)
[2016-07-20] MEDS: LORazepam 2 MG/ML INJ IVP PRN ×4 (04:58→23:07)
[2016-07-20 05:39] LABS: ALANINE AMINOTRANSFERASE 37 IU/L (9-52); ALBUMIN 2.9 g/dL (3.5-5.0); ALKALINE PHOSPHATASE 85 IU/L (38-126); ANION GAP 5 mEq/L (8-16); ASPARTATE AMINOTRANSFERASE 69 IU/L (14-46); CALCIUM 8.7 mg/dL (8.5-10.4); CARBON DIOXIDE 24 mEq/l (22-31); CHLORIDE 105 mEq/L (97-110); CREATININE 0.4 mg/dL (0.6-1.0); GLOMERULAR FILTRATION RATE > 60; GLUCOSE 71 mg/dL (70-100); MAGNESIUM 1.5 mg/dL (1.6-2.3); POTASSIUM 3.7 mEq/L (3.5-5.2); SODIUM 134 mEq/L (134-144); TOTAL PROTEIN 5.1 g/dL (6.3-8.2)
[2016-07-20 05:49] LABS: % IMMATURE GRANULYOCYTES 0.8 % (0.0-1.1); ABSOLUTE IMMATURE GRANULOCYTES 0.03 10^3/uL (0.00-0.10); ADD DIFF? NO; ADD MORPH? NO; ADD SCAN? NO; ATYPICAL LYMPHOCYTE FLAG 0 (0-99); FRAGMENT RBC FLAG 0 (0-99); HEMATOCRIT 26.2 % (38.0-47.0); HEMOGLOBIN 9.2 g/dL (12.6-16.3); LEFT SHIFT FLG 0 (0-99); LIPEMIA HEMOLYSIS FLAG 90 (0-99); MEAN CELL HEMOGLOBIN 37.6 pg (27.9-34.1); MEAN CELL HEMOGLOBIN CONCENTR. 35.1 g/dL (32.4-36.7); MEAN CELL VOLUME 106.9 fL (81.5-99.8); MEAN PLATELET VOLUME 9.7 fL (8.7-11.7); PLATELET CLUMPS FLAG 10 (0-99); PLATELET COUNT 152 10^3/uL (150-400); RED BLOOD CELL COUNT 2.45 10^6/uL (4.18-5.33); RED CELL DISTRIBUTION WIDTH 14.6 % (11.5-15.2)
[2016-07-20] MEDS: INSULIN LISPRO 100 UNIT/ML SC SCH ×4 (06:10→23:28)
--- NOTE | 2016-07-20 09:09 | US ---
Complete Abdominal Sonogram Indications: Worsening abdominal pain in a 30-year-old female recently diagnosed with pancreatitis. Technique: Longitudinal and transverse transabdominal images are obtained. Color Doppler evaluation i s employed for assessment of vascularity. Comparison to CT the abdomen and pelvis performed July 072016. Findings: The pancreas is fairly well visualized and appears normal. Specifically, there is no eviden ce for pseudocyst formation. No peripancreatic fluid is seen and no ascites is identified. The liver is normal size measuring 16 cm in the midaxillary line. The liver has increased echogenicity. The hep atic contour is normal. Multiple small gallstones are noted. The right upper quadrant Manjarrez sign is negative. Common bile duct is normal caliber and measures 3.3 mm in diameter. The kidneys are unremarkable with no hydronephrosis. The right kidney measures 9.8 cm in cephalocaudal height and the left kidney measures 9.4 cm. Cortical thickness is estimated at 1.4 cm on the right and at 1.7 cm on the left. The spleen is normal size measuring 7.8 cm. The abdominal ao rta is normal caliber and tapers normally. Pleural effusions noted on the previous CT have essentiall y completely resolved. Impression: 1. No evidence for progression in pancreatitis, specifically, no evidence for pseudocyst formation. 2. Cholelithiasis. 3. Increased hepatic echogenicity may reflect steatosis.
[2016-07-20] MEDS: FAMOTIDINE 20 MG/NACL 50 ML IV SCH ×2 (09:12→21:36)
[2016-07-20] MEDS: THIAMINE HCL 100 MG TAB PO SCH (09:13)
[2016-07-20] MEDS: NICOTINE 7 MG/24 HR PATCH TD SCH (09:13)
[2016-07-20] MEDS ORDERED: MAGNESIUM SULF 1 GM/DEXTROSE 100 ML IV ONE (10:54)
--- NOTE | 2016-07-20 12:14 | HOSPPROG ---
Hospitalist Progress Note Assessment/Plan: Patient is a 30-year-old female with history of alcoholism and history of laya pancreatitis. She presented with 1 week history of abdominal pain and decreased p.o. intake. She drinks 2-3 drinks a day and probably more during the holidays. #. Alcoholic pancreatitis - * prior course in 07/2014 complicated by abscess requiring laparotomy. * No e/o abscess on CT. She has been aggressively volume resuscitated. * better today/ ultrasound shows no progression of pancreatits #. Alcohol dependence * Piper does not think she has a problem with this/shared with her my concern that it is a problem * has had 2 bouts of pancreatitis # Mild Hyperglycemia - in setting of acute illness * dc D5 in fluids #. Urinary frequency/urgency * check ua and cx * #. Metabolic acidosis - Likely alcoholic ketoacidosis * improving #. Electrolyte abnormalities * on protocol #. Pancytopenia * due to alcohol use #. H/O C diff - no diarrhea here #. Celiac disease - gluten free diet #. DVT PPLX - lovenox Dispo -pending/ she is slow to improve/ will stop fluids, trial of regular diet , check a ua Subjective: Piper is feeling better/ very anxious. Objective: Vital Signs Temp Pulse Resp BP Pulse Ox 36.6 C 96 18 147/110 H 92 07/20/16 08:00 07/20/16 08:00 07/20/16 04:00 07/20/16 08:00 07/20/16 08:00 Laboratory Results 07/20/16 05:00 07/20/16 05:00 07/19/16 07/20/16 07/21/16 05:59 05:59 05:59 Intake Total 2114 2582 Output Total 1999 1900 400 Balance 114 682 -400 PT 13.5 SEC (12.0-15.0) 07/16/16 03:55 INR 1.04 (0.83-1.16) 07/16/16 03:55 - Physical Exam Constitutional: no apparent distress Eyes: PERRL, icteric sclera Ears, Nose, Mouth, Throat: hearing normal Cardiovascular: regular rate and rhythym Respiratory: no respiratory distress Gastrointestinal: normoactive bowel sounds, tenderness (slight in epigastric area with palp) Skin: warm Musculoskeletal: no muscle tenderness Neurologic: AAOx3 Psychiatric: interacting appropriately (less flat today, more interactive and talkative) ICD10 Worksheet Patient Problems: Problems Problem Status Diagnosed Neuropathy Acute Abdominal pain Acute C. difficile diarrhea Acute 07/30/15 Colitis Acute Dehydration Acute Pancreatitis Acute Phlegmon of pancreas Acute Ruptured appendicitis Acute SIRS (systemic inflammatory response syndrome) Acute Tachycardia Acute
[2016-07-20] MEDS: POTASSIUM Cl (KCl) 100 ML IV SCH ×2 (12:43→14:36)
[2016-07-20 14:34] LABS: COLOR PALE YELLOW; LEUKOCYTE ESTERASE,URINE NEGATIVE (NEGATIVE); NITRITE,URINE NEGATIVE (NEGATIVE)
[2016-07-20 14:35] LABS: MUCUS TRACE /lpf (NONE-1+)
[2016-07-20 14:38] LABS: BACTERIA NONE SEEN /hpf (NONE SEEN)
[2016-07-20 19:23] VITALS: RESP 16
[2016-07-20] MEDS: PROMETHAZINE HCL 25 MG/ML VIAL IVP PRN (21:35)
[2016-07-20 22:28] LABS: POTASSIUM 3.7 mEq/L (3.5-5.2)
[2016-07-20] MEDS ORDERED: POTASSIUM CL 10 MEQ TAB PO ONE (23:33)
[2016-07-20] MEDS: diphenhydrAMINE 25 MG CAP PO PRN (23:44)
[2016-07-21 05:09] LABS: ALANINE AMINOTRANSFERASE 39 IU/L (9-52); ALBUMIN 3.1 g/dL (3.5-5.0); ALKALINE PHOSPHATASE 96 IU/L (38-126); ANION GAP 7 mEq/L (8-16); ASPARTATE AMINOTRANSFERASE 50 IU/L (14-46); BILIRUBIN,TOTAL 0.8 mg/dL (0.1-1.4); CALCIUM 8.9 mg/dL (8.5-10.4); CARBON DIOXIDE 24 mEq/l (22-31); CHLORIDE 105 mEq/L (97-110); CREATININE 0.5 mg/dL (0.6-1.0); GLOMERULAR FILTRATION RATE > 60; GLUCOSE 79 mg/dL (70-100); MAGNESIUM 1.6 mg/dL (1.6-2.3); POTASSIUM 3.9 mEq/L (3.5-5.2); SODIUM 136 mEq/L (134-144); TOTAL PROTEIN 5.4 g/dL (6.3-8.2)
[2016-07-21] MEDS: HYDROmorphONE/DILAUDID 1 MG/ML SYR IVP PRN (06:16)
[2016-07-21] MEDS: INSULIN LISPRO 100 UNIT/ML SC SCH ×2 (06:45→11:44)
[2016-07-21] MEDS: LORazepam 2 MG/ML INJ IVP PRN (08:20)
[2016-07-21] MEDS: THIAMINE HCL 100 MG TAB PO SCH (08:21)
[2016-07-21] MEDS: NICOTINE 7 MG/24 HR PATCH TD SCH (08:21)
[2016-07-21] MEDS: FAMOTIDINE 20 MG/NACL 50 ML IV SCH (08:21)
[2016-07-21] MEDS ORDERED: POTASSIUM CL 10 MEQ TAB PO ONE (08:46)
[2016-07-21] MEDS ORDERED: MAGNESIUM SULF 1 GM/DEXTROSE 100 ML IV ONE (08:49)
[2016-07-21 11:12] VITALS: BP 122/90; PULSE 106; TEMP 98.1; O2SAT 95
--- NOTE | 2016-07-21 12:28 | HOSPPROG ---
Hospitalist Progress Note Assessment/Plan: Patient is a 30-year-old female with history of alcoholism and history of laya pancreatitis. She presented with 1 week history of abdominal pain and decreased p.o. intake. She drinks 2-3 drinks a day and probably more during the holidays. #. Alcoholic pancreatitis - * prior course in 07/2014 complicated by abscess requiring laparotomy. * No e/o abscess on CT. She has been aggressively volume resuscitated. * better today/ ultrasound shows no progression of pancreatits * patient is eating and drinking without difficulty/ lipase is elevated but she is not having any further pain #. Alcohol dependence * Piper does not think she has a problem with this/shared with her my concern that it is a problem * has had 2 bouts of pancreatitis # Mild Hyperglycemia - in setting of acute illness * dc D5 in fluids #. anxiety * Piper says that is what causes her to drink * she would likely benefit from some type of antidepressant such as Celexa * have given her a name of her primary care provider to get follow up with #. Urinary frequency/urgency * urinalysis shows no infectious etiology * #. Metabolic acidosis - Likely alcoholic ketoacidosis * improving #. Electrolyte abnormalities * on protocol #. Pancytopenia * due to alcohol use #. H/O C diff - no diarrhea here #. Celiac disease - gluten free diet #. DVT PPLX - lovenox Dispo - DC home Subjective: Piper is feeling much better/ eating and drinking /wants to go home. Objective: Vital Signs Temp Pulse Resp BP Pulse Ox 36.7 C 106 H 16 122/90 H 95 07/21/16 11:11 07/21/16 11:11 07/21/16 11:11 07/21/16 11:11 07/21/16 11:11 Laboratory Results 07/20/16 05:00 07/21/16 04:10 07/20/16 07/21/16 07/22/16 05:59 05:59 05:59 Intake Total 2582 1250 Output Total 1900 600 Balance 682 650 PT 13.5 SEC (12.0-15.0) 07/16/16 03:55 INR 1.04 (0.83-1.16) 07/16/16 03:55 - Physical Exam Constitutional: other (thin) Eyes: PERRL Ears, Nose, Mouth, Throat: hearing normal Respiratory: no respiratory distress Gastrointestinal: normoactive bowel sounds, soft, non-tender abdomen Skin: warm, normal color Musculoskeletal: full muscle strength Neurologic: AAOx3 Psychiatric: flat affect ICD10 Worksheet Patient Problems: Problems Problem Status Diagnosed Neuropathy Acute Abdominal pain Acute C. difficile diarrhea Acute 07/30/15 Colitis Acute Dehydration Acute Pancreatitis Acute Phlegmon of pancreas Acute Ruptured appendicitis Acute SIRS (systemic inflammatory response syndrome) Acute Tachycardia Acute
--- NOTE | 2016-07-21 13:05 | GDS ---
[f rep st] DISCHARGE SUMMARY DISCHARGE DIAGNOSES: 1. Alcoholic pancreatitis. 2. Alcohol dependence. 3. Mild hyperglycemia. 4. Anxiety. 5. Urinary frequency and urgency. 6. Metabolic acidosis. 7. Electrolyte abnormalities. 8. Pancytopenia. 9. History of Clostridium difficile. 10. Celiac disease. BRIEF HISTORY: Piper is a 30-year-old female with a history of alcoholism and previous episode of severe pancreatitis last July. She presented with a week history of abdominal pain and decreased oral intake. She had severe abdominal pain that radiated to her back. She states she only drinks 2-3 drinks a day, but admits to probably drinking more during the holidays. During her stay, she had a CT of the abdomen performed, which showed pancreatitis with regional inflammatory stranding throughout the upper abdomen and small to moderate volume of free fluid in the pelvis. She had no pancreatic necrosis or organized abscess or pseudocyst. Throughout her stay, she was slow to improve. She had an abdominal ultrasound for further followup. This showed no progression of the pancreatitis. Today, she is eating and drinking well, even though the lipase is elevated. She would like to go home. Encouraged her to go to . Case Management is working with her. I am concerned that she may start drinking again. HOSPITAL COURSE PER PROBLEM: 1. Alcoholic pancreatitis: She is eating and drinking. Will have her follow up in the outpatient setting. 2. Alcohol dependence: Have encouraged her to go to . 3. Mild hyperglycemia: This in the setting of an acute illness. 4. Anxiety: I suspect this is why she has been drinking. Will have her follow up with her neurologist and I have given her the name of a primary care provider to follow up. 5. Urinary frequency and urgency: A urinalysis was performed that showed no infectious etiology. Suspect this is all secondary from getting significant IV fluids. 6. Metabolic acidosis: Resolved. 7. Electrolyte abnormalities: Much improved on the protocol. 8. Pancytopenia: This is in the setting of alcohol use. Recommended that she get repeat labs. 9. Past history of Clostridium difficile: No diarrhea here. 10. Celiac disease: To resume a gluten-free diet. PENDING LABS AND TESTS: None. CONDITION AT DISCHARGE: Stable. Blood pressure is 122/98, heart rate is 100, respiratory rate is 16, O2 sats on room air 95%, temperature is 36.7 Celsius. DISCHARGE MEDICATIONS: Please see the EMR. DISCHARGE INSTRUCTIONS: 1. To stay well hydrated. 2. To follow up with Dr. Lorri Mahan. 3. To abstain from all alcohol. Greater than 30 minutes discharging and coordinating care. /[id number]/MODL MTDD
== END 2016-07-21 13:39 | disposition home or self-care (01) | DRG 439 ==
LOC: F2N 15:16 → F3E 07-16 13:09
PROVIDERS: ADMIT Internal Medicine; ATTEND Internal Medicine
DX: K85.20 Alcohol induced acute pancreatitis without necrosis or infection (principal); F10.20 Alcohol dependence, uncomplicated; R73.9 Hyperglycemia, unspecified; D61.818 Other pancytopenia; E87.2 Acidosis; F41.9 Anxiety disorder, unspecified; R35.0 Frequency of micturition; R39.15 Urgency of urination; F17.210 Nicotine dependence, cigarettes, uncomplicated; M06.9 Rheumatoid arthritis, unspecified
CPT/HCPCS: 80305; 96365; 97116-GP; 97162-GP; 97165-GO; 97530-GO; 97530-GP; 97535-GO; C1751; G0480; J0610; J1170; J1650; J1815; J2405; J2550; J2997; J3411; J3475; Q9967

== ENCOUNTER → 2017-07-16 | Outpatient (CLI) | payer BC ==
[~2017-07-16] MED LIST: IOPAMIDOL (ISOVUE-300) 100 ML BTL ONE
== END ==
LOC: FIMAGING 10:34
PROVIDERS: ATTEND Psychiatry & Neurology Neurology
DX: G43.109 Migraine with aura, not intractable, without status migrainosus (principal); H53.2 Diplopia; H55.00 Unspecified nystagmus; G60.9 Hereditary and idiopathic neuropathy, unspecified; G31.9 Degenerative disease of nervous system, unspecified
CPT/HCPCS: Q9967

== ENCOUNTER → 2017-07-25 | Outpatient (CLI) | payer BC | LOC: FIMAGING 07:04 | PROVIDERS: ATTEND Psychiatry & Neurology Neurology | DX: G60.9 Hereditary and idiopathic neuropathy, unspecified (principal); H53.2 Diplopia; H55.00 Unspecified nystagmus ==